=== PATIENT | female | born 1960 | race Caucasian/White ===

== ENCOUNTER → 2017-12-14 16:22 | Outpatient (CLI) | payer BC, SELFPAY ==
--- NOTE | 2017-12-14 16:28 | MM_ITS ---
MM Dig screening mamm BI w/CAD CAD Screening COMPARISON: Digital mammograms 12/09/2015 and 12/10/2016 INDICATION: There is no personal or family history of breast cancer TECHNIQUE: Standard CC and MLO images were obtained. R2 CAD reviewed. FINDINGS: Moderate diffuse fiber glandular densities are seen throughout both breast and the findings are bilateral and symmetrical. There is a mole marker right breast. There is no new or suspicious lesion in either breast and there are no suspicious microcalcifications. IMPRESSION: Moderate diffuse breast density with no suspicious lesion seen recommend yearly follow-up BI-RADS Category: 1 Negative RECOMMENDED FOLLOW-UP: 1YR - 1 YEAR FOLLOW-UP (A letter has been sent to the patient regarding results of the study.)
== END ==
PROVIDERS: Family Provider Family Medicine; PCP Family Medicine; Visit Provider Family Medicine
DX: Z12.31 Encounter for screening mammogram for malignant neoplasm of breast (principal)
CPT/HCPCS: 77067

== ENCOUNTER → 2018-07-13 14:35 | Outpatient (CLI) | payer BC, SELFPAY ==
--- NOTE | 2018-07-13 14:39 | US_ITS ---
US thyroid HISTORY: ITS.REASON: THYROMEGALY, thyroid nodule ORDERING PHYSICIAN: Francesca Ba MD PATIENT AGE: 58 years Comparison: FINDINGS: The right lobe of the thyroid gland is 3.8 x 2 x 1.7 cm. There is heterogeneous echogenicity with nodularity of the thyroid gland. Nodule A: Upper pole 12 x 5 mm slightly hypoechoic. Nodule B: mid polar region solid appearing 10 x 7 mm. Nodule C: lower pole solid appearing isoechoic at 7 mm Left lobe: 3.5 x 1.6 x 1.7 cm with heterogeneous echogenicity. Nodule A: Upper lobe mixed echogenicity at 11 x 8 mm. IMPRESSION: Heterogeneous echogenicity of the thyroid gland with bilateral nodules as described above which are low level suspicion for malignancy.. Consider 6 month follow-up to confirm short-term stability
== END ==
PROVIDERS: PCP Family Medicine; Visit Provider Family Medicine
DX: E01.0 Iodine-deficiency related diffuse (endemic) goiter (principal)
CPT/HCPCS: 76536

== ENCOUNTER → 2018-12-19 08:10 | Outpatient (CLI) | payer BC, SELFPAY ==
--- NOTE | 2018-12-19 08:15 | MM_ITS ---
MM Dig screening mamm BI w/CAD CAD Screening COMPARISON: Digital mammograms with CAD 12/14/2017 and 12/10/2016 INDICATION: There is no personal or family history of breast cancer TECHNIQUE: Standard CC and MLO images were obtained. R2 CAD reviewed. FINDINGS: Prominent diffuse fibroglandular densities are seen throughout both breast. The findings are bilateral and symmetrical. There is a mole marker right breast. There are couple benign-appearing microcalcifications in each breast. There are fatty replaced nodes in each axilla. There is no suspicious lesion and there are no suspicious microcalcifications. IMPRESSION: Fibrofatty parenchyma with no suspicious lesion seen BI-RADS Category: 2 Benign Finding(s) RECOMMENDED FOLLOW-UP: 1YR - 1 YEAR FOLLOW-UP (A letter has been sent to the patient regarding results of the study.)
--- NOTE | 2018-12-19 11:00 | US_ITS ---
US thyroid HISTORY: Follow-up thyroid nodules ITS.REASON: THYROID NODULE ORDERING PHYSICIAN: Francesca Ba MD PATIENT AGE: 58 years Comparison: 07/13/2018 FINDINGS: The right lobe is 4.1 x 1.8 x 1.7 cm with diffuse heterogeneous echogenicity. Difficult to determine definite margins of some of the nodules that are measured. There is an 8 mm x 5 mm nodule in the upper pole which appears solid unchanged. 15 x 10 mm nodular density is noted in the mid polar region and is probably unchanged given the difference in technique. The left lobe is 3.8 x 1.7 x 1.7 cm with diffuse heterogeneous echogenicity. An ill-defined hypoechoic area is present in the upper pole at 9 x 7 mm unchanged. IMPRESSION: Overall no change in the diffuse heterogeneous echogenicity of the thyroid gland with stable bilateral nodules
== END ==
PROVIDERS: PCP Family Medicine; Visit Provider Family Medicine
DX: Z12.31 Encounter for screening mammogram for malignant neoplasm of breast (principal); E04.1 Nontoxic single thyroid nodule
CPT/HCPCS: 76536; 77067

== ENCOUNTER → 2019-11-30 07:45 | Outpatient (CLI) | payer BC, SELFPAY ==
--- NOTE | 2019-11-30 07:50 | MM_ITS ---
PROCEDURE: MM DIG SCREENING MAMM BI W/CAD Digital Breast Tomosynthesis Included CLINICAL INDICATION: SCREENING There is no personal or family history of breast cancer. COMPARISON: [facility] DIG MAMM-SCREEN [facility]UE W/CAD from 12/10/2016 [facility] MM Dig screening mamm BI w/CAD from 12/14/2017 DIG MAMM-SCREEN YUE from 12/19/2018 TECHNIQUE: Standard CC and MLO images and 3D Tomosynthesis was obtained. R2 CAD reviewed. FINDINGS: Moderate scattered fibroglandular densities are seen throughout both breasts. There is a mole marker right breast. Josesito images were reviewed. There is no suspicious lesion and no suspicious microcalcifications. There are fatty replaced nodes in both axilla. IMPRESSION: Fibrofatty parenchyma with no suspicious lesions seen BI-RAD Category: 1 Negative FOLLOW-UP: 1YR 1 Year Follow-up (A letter has been sent to the patient regarding results of the study.) Dictated by: Dr. Marlon Steven MD 12/01/2019 11:[address] Marlon Steven MD in [place] 12/01/2019 11:02
== END ==
PROVIDERS: PCP Family Medicine; Visit Provider Family Medicine
DX: Z12.31 Encounter for screening mammogram for malignant neoplasm of breast (principal)
CPT/HCPCS: 77063; 77067

== ENCOUNTER → 2020-05-15 08:42 | Outpatient (CLI) | payer BC, SELFPAY ==
--- NOTE | 2020-05-15 08:49 | CA_ITS ---
APPROVED REPORT EXAM: Comprehensive 2D, Doppler, and color-flow Echocardiogram Supervisor Decorating: Rebekah Cuellar RVT Ht: 5 ft 4 in Wt: 195lbs BSA: 1.94 BP: 130/80 mmHg Indications: EDEMA, Obesity TDS 2D Dimensions LVOT 2.00 cm (M/F) 1.5-2.5 M-Mode Dimensions RVDd 2.59 cm (0.9-2.6) LVDd 5.22 cm (3.5-5.7) LVDs 3.17 cm (3.5-5.7) IVSd 1.16 cm (0.6-1.1) PWd 0.89 cm (0.6-1.1) EF (Teich) 69.40% FS 39.30% EDV (Teich) 130.70 mL ESV (Teich) 40.00 mL LV Diastology E/A Ratio 0.96 Mitral Valve MV A Velocity 71.00 (40-130 cm/s) Left Ventricle Left atrium is normal size, left ventricle is normal size, there is no concentric left ventricular hypertrophy, visually estimated ejection fraction 55% with no regional wall motion abnormality, diastolic parameters are inconclusive. Right Ventricle Right atrium and right ventricular normal size and contractility. Aortic Valve Aortic valve is grossly normal. There is no aortic stenosis or aortic insufficiency. Mitral Valve Mitral valve is grossly normal, there is mild mitral regurgitation. Tricuspid Valve Tricuspid valve is grossly normal, there is mild tricuspid regurgitation, tricuspid regurgitation jet velocity is inadequate for calculation of the right ventricular systolic pressure. Pulmonic Valve Pulmonic valve is poorly visualized. Great Vessels Aortic root is normal size. Pericardium No significant pericardial effusion noted. Conclusion 1. Normal left ventricular size, preserved left ventricular systolic function. Visually estimated ejection fraction 55% with no regional wall motion abnormality, diastolic parameters are inconclusive. 2. Mild mitral and tricuspid regurgitation. 3. No significant pericardial effusion noted, anterior echo-free space seen. Electronically signed by : Audie Thomason, 05/16/2020 09:47:33
== END ==
PROVIDERS: PCP Family Medicine; Visit Provider Family Medicine
DX: R60.0 Localized edema (principal)
CPT/HCPCS: 93306

== ENCOUNTER → 2020-12-06 14:46 | Outpatient (CLI) | payer BC, SELFPAY ==
--- NOTE | 2020-12-06 14:54 | MM_ITS ---
PROCEDURE: MM DIG SCREENING MAMM BI W/CAD Digital Breast Tomosynthesis Included CLINICAL INDICATION: SCREENING There is no personal or family history of breast cancer. COMPARISON: [facility] MM Dig screening mamm BI w/CAD from 12/14/2017 MG DIG MAMM-SCREEN YUE from 12/19/2018 MG MM DIG SCREENING MAMM BI W/CAD from 11/30/2019 TECHNIQUE: Standard CC and MLO images and 3D Tomosynthesis was obtained. R2 CAD reviewed. FINDINGS: Moderate scattered fibroglandular densities are seen in both breasts and the findings are bilateral and symmetrical. There is a mole marker right breast. There is a benign-appearing microcalcification right breast. There is no suspicious lesion in either breast no suspicious microcalcifications. There are fatty replaced nodes in both axilla. IMPRESSION: Moderate diffuse breast density with no suspicious lesions seen BI-RAD Category: 2 Benign Finding(s) FOLLOW-UP: 1YR 1 Year Follow-up (A letter has been sent to the patient regarding results of the study.) Dictated by: Dr. Marlon Steven MD 12/14/2020 10:25 Dr. Marlon Steven MD in [place] 12/14/2020 10:25
== END ==
PROVIDERS: PCP Family Medicine; Visit Provider Family Medicine
DX: Z12.31 Encounter for screening mammogram for malignant neoplasm of breast (principal)
CPT/HCPCS: 77063; 77067

== ENCOUNTER → 2021-06-23 11:29 | Outpatient (CLI) | payer BC, SELFPAY ==
--- NOTE | 2021-06-23 11:34 | XR_ITS ---
PROCEDURE: XR ANKLE RT MIN 3V CLINICAL INDICATION: PAIN IN RT ANKLE AND JOINT OF RT FOOT COMPARISON: No exams were available for comparison FINDINGS: No fracture or dislocation. No lytic or blastic change. There is normal mineralization. The joint spaces are well-preserved. No significant degenerative/arthritic changes. No erosive changes evident. Other findings:Mildly prominent calcaneal spur IMPRESSION: No acute findings. Dictated by: Perfecto Harris MD 06/23/2021 12:01 Perfecto Harris MD in [place] 06/23/2021 12:01
--- NOTE | 2021-06-23 11:34 | XR_ITS ---
PROCEDURE: XR ANKLE LT MIN 3V CLINICAL INDICATION: PAIN IN LT ANKLE AND JOINT OF LT FOOT COMPARISON: No exams were available for comparison FINDINGS: No fracture or dislocation. No lytic or blastic change. There is normal mineralization. The joint spaces are well-preserved. No significant degenerative/arthritic changes. No erosive changes evident. Other findings:Mildly prominent calcaneal spur IMPRESSION: No acute findings. Dictated by: Perfecto Harris MD 06/23/2021 12:02 Perfecto Harris MD in [place] 06/23/2021 12:02
== END ==
PROVIDERS: PCP Family Medicine; Visit Provider Nurse Practitioner
DX: M25.572 Pain in left ankle and joints of left foot (principal); M25.571 Pain in right ankle and joints of right foot
CPT/HCPCS: 73610

== ENCOUNTER → 2021-08-27 12:51 | Outpatient (CLI) | payer BC, SELFPAY | PROVIDERS: PCP Family Medicine; Visit Provider Family Medicine | DX: G47.33 Obstructive sleep apnea (adult) (pediatric) (principal); I10 Essential (primary) hypertension; R40.0 Somnolence; E66.9 Obesity, unspecified | CPT/HCPCS: G0399 ==

== ENCOUNTER → 2021-12-10 09:46 | Outpatient (CLI) | payer BC, SELFPAY ==
--- NOTE | 2021-12-10 09:51 | MM_ITS ---
PROCEDURE INFORMATION: Exam: MG Bilateral Screening 3D Mammography Exam date and time: 12/10/2021 9:51 AM Age: 61 years old Clinical indication: Encounter for screening mammogram for malignant neoplasm of breast. No family history of breast cancer. TECHNIQUE: Imaging protocol: Bilateral Screening tomosynthesis and 2D mammography including computer-aided detection (CAD) when performed. COMPARISON: 1. MG MM DIG SCREENING MAMM BI W/CAD 12/06/2020 2:53 PM 2. MG MM DIG SCREENING MAMM BI W/CAD 11/30/2019 8:05 AM 3. MG DIG MAMM-SCREEN YUE 12/19/2018 8:26 AM 4. MG [facility] MM Dig screening mamm BI w/CAD 12/14/2017 4:36 PM FINDINGS: MAMMOGRAPHY: Breast composition: The breast tissue is composed of scattered areas of fibroglandular density. Mass: No suspicious mass. Architectural distortion: None. Calcifications: No suspicious calcifications. Asymmetric density: None. Skin thickening: None. Axillary adenopathy: None. IMPRESSION: No mammographic evidence of malignancy. Annual screening is recommended unless otherwise clinically indicated. ASSESSMENT: BI-RADS Category 1: Negative
== END ==
PROVIDERS: PCP Family Medicine; Visit Provider Family Medicine
DX: Z12.31 Encounter for screening mammogram for malignant neoplasm of breast (principal)
CPT/HCPCS: 77063; 77067

== ENCOUNTER → 2023-01-13 10:11 | Outpatient (CLI) | payer BC, SELFPAY ==
--- NOTE | 2023-01-13 10:11 | MM_ITS ---
PROCEDURE INFORMATION: Exam: MG Bilateral Screening 3D Mammography Exam date and time: 01/13/2023 10:30 AM Age: 62 years old Clinical indication: Screening mammogram TECHNIQUE: Imaging protocol: Bilateral Screening tomosynthesis and 2D mammography including computer-aided detection (CAD) when performed. COMPARISON: 1. MG MM DIG SCREENING MAMM BI W/CAD 12/10/2021 9:45 AM 2. MG MM DIG SCREENING MAMM BI W/CAD 12/06/2020 2:53 PM 3. MG MM DIG SCREENING MAMM BI W/CAD 11/30/2019 8:05 AM 4. MG DIG MAMM-SCREEN YUE 12/19/2018 8:26 AM FINDINGS: MAMMOGRAPHY: Breast composition: There are scattered areas of fibroglandular density. Mass: None. Architectural distortion: No new or suspicious architectural distortion. Calcifications: No new or suspicious calcifications are present Asymmetric density: No new or suspicious asymmetric density is present Skin thickening: None. Axillary adenopathy: None. IMPRESSION: No mammographic evidence of malignancy. Recommend annual screening mammography unless otherwise clinically indicated. ASSESSMENT: BI-RADS category 1: Negative
== END ==
PROVIDERS: PCP Family Medicine; Visit Provider Family Medicine
DX: Z12.31 Encounter for screening mammogram for malignant neoplasm of breast (principal)
CPT/HCPCS: 77063; 77067

== ENCOUNTER → 2023-01-22 10:35 | Outpatient (CLI) | payer BC, SELFPAY ==
[2023-01-22 18:03] LABS: Alanine Aminotransferase 43 U/L (12-78); Albumin Level 4.7 g/dl (3.5-5.0); Albumin/Globulin Ratio 1.5 (1.1-1.8); Alkaline Phosphatase 104 U/L (38-126); Anion Gap 17.4 mEq/L (5-15); Aspartate Amino Transferase 43 U/L (14-36); Bilirubin,Total 0.5 mg/dl (0.2-1.3); Blood Urea Nitrogen 16 mg/dl (7-17); Calcium 9.7 mg/dl (8.4-10.2); Carbon Dioxide 23 mmol/L (22.0-30.0); Chloride 101 mmol/L (98-107); Estimated Glomerular Filt Rate 85 ml/min (>60); GFR (African American) 103 ML/MIN (>60); Globulin 3.1 g/dL (1.3-3.2); Glucose 95 mg/dl (74-100); Potassium 4.4 mmoL/L (3.5-5.1); Sodium 137 mmol/L (136-145); Total Protein,Serum 7.8 g/dl (6.3-8.2)
[2023-01-22 18:32] LABS: Thyroid Stimulating Hormone 2.89 uIU/mL (0.465-4.68)
[2023-01-22 18:51] LABS: Vitamin B12 984 pg/mL (239-931)
== END ==
PROVIDERS: PCP Family Medicine; Visit Provider Family Medicine
DX: R53.83 Other fatigue (principal); I10 Essential (primary) hypertension
CPT/HCPCS: 80053; 82607; 84443